=== PATIENT | female | born 1975 | race Asian ===

== ENCOUNTER 2016-12-09 23:57 | Emergency (ER) | payer OTHER ==
[~2016-12-09] VITALS: Ht 165.1 cm; Wt 132.0 kg
[2016-12-10] MEDS ORDERED: METF10002 PO (00:20)
[2016-12-10] MEDS ORDERED: LISI-170 PO (00:20)
[2016-12-10 02:50] VITALS: BP 145/93
== END 2016-12-10 03:14 | disposition home or self-care (01) ==
LOC: ED 12-10 02:50
DX: F10.120 Alcohol abuse with intoxication, uncomplicated (principal); E11.9 Type 2 diabetes mellitus without complications; I10 Essential (primary) hypertension
CPT/HCPCS: 99283

== ENCOUNTER → 2017-05-26 | Outpatient (CLI) | payer OTHER ==
[~2017-05-26] MED LIST: LISI-170 PO; METF10002 PO
== END | disposition home or self-care (01) ==
LOC: CFH 07:18
PROVIDERS: ATTEND Specialist
DX: Z12.31 Encounter for screening mammogram for malignant neoplasm of breast (principal); R10.10 Upper abdominal pain, unspecified
CPT/HCPCS: 76700; 77067

== ENCOUNTER → 2017-10-12 | Outpatient (CLI) | payer OTHER ==
[~2017-10-12] MED LIST changes: +METF500T27 PO
[2017-10-12 14:54] LABS: ALBUMIN 3.5 g/dL (3.4-5.0); ANION GAP 5 mmol/L (5-15); CALCIUM 8.9 mg/dL (8.5-10.1); CHLORIDE 106 mmol/L (98-107)
[2017-10-12 14:57] LABS: ALANINE AMINOTRANSFERASE 24 U/L (12-78); ALKALINE PHOSPHATASE 109 U/L (45-117); BILIRUBIN,TOTAL 0.3 mg/dL (0.2-1.0); CREATININE 0.76 mg/dL (0.55-1.02); TOTAL PROTEIN 7.7 g/dL (6.4-8.2)
== END | disposition home or self-care (01) ==
LOC: STAR 13:34
PROVIDERS: ATTEND Internal Medicine Gastroenterology
DX: Z01.818 Encounter for other preprocedural examination (principal); K62.5 Hemorrhage of anus and rectum
CPT/HCPCS: 36415; 80053; 93005

== ENCOUNTER 2017-10-20 07:21 | Day surgery (SDC) | payer OTHER ==
[~2017-10-20] VITALS: Ht 165.1 cm; Wt 133.0 kg
[2017-10-20 07:40] VITALS: BP 115/72
[2017-10-20] MEDS ORDERED: LACTATED RINGERS 1,000 ML IV SCH (07:40)
[2017-10-20] MEDS ORDERED: MIDAZOLAM 1 MG/ML, 2ML ONE (07:54)
[2017-10-20] MEDS ORDERED: FENTANYL PF 100 MCG/2ML ONE (07:54)
[2017-10-20] MEDS ORDERED: ACETAMINOPHEN 325 MG TABLET PO PRN (08:00)
[2017-10-20] MEDS ORDERED: FENTANYL PF 100 MCG/2ML IV PRN (08:00)
[2017-10-20] MEDS ORDERED: OXYcodone 5 MG/5 ML ORAL.SOL UDC PO PRN (08:00)
[2017-10-20] MEDS ORDERED: MORPHINE SULFATE 4 MG/ML, 1ML IVPush PRN (08:00)
[2017-10-20] MEDS ORDERED: MEPERIDINE/PF 25MG/0.5ML IVPush PRN (08:00)
[2017-10-20] MEDS ORDERED: ONDANSETRON ODT 8 MG PO PRN (08:00)
[2017-10-20] MEDS ORDERED: ONDANSETRON 2MG/ML, 2ML ONE (08:14)
[2017-10-20] MEDS ORDERED: PROPOFOL 10 MG/ML, 50ML ONE (08:14)
[2017-10-20] MEDS ORDERED: PROPOFOL 10 MG/ML, 20ML ONE (08:14)
== END 2017-10-20 10:40 | disposition home or self-care (01) ==
LOC: OUT 07:21
PROVIDERS: ATTEND Internal Medicine Gastroenterology
DX: K29.50 Unspecified chronic gastritis without bleeding (principal); K63.5 Polyp of colon; K64.4 Residual hemorrhoidal skin tags; E11.9 Type 2 diabetes mellitus without complications; E78.5 Hyperlipidemia, unspecified; Z68.42 Body mass index [BMI] 45.0-49.9, adult
CPT/HCPCS: 43239; 45385; 81025; 82962; 88305; J2405; J2704; J7120